=== PATIENT | female | born 2005 | race Two or more races ===

== ENCOUNTER 2025-03-06 15:56 | Outpatient (CLI) | payer OTHER, SELFPAY ==
[2025-03-06 23:21] LABS: Chlamydia DNA Amplified* NOT DETECTED (No Detected); GC DNA Amplified* NOT DETECTED (No Detected)
== END 2025-03-06 15:57 | disposition home or self-care (01) ==
LOC: NFLDUCREF 15:56
PROVIDERS: Visit Provider Nurse Practitioner Family
DX: N93.0 Postcoital and contact bleeding (principal); R82.90 Unspecified abnormal findings in urine; Z11.3 Encounter for screening for infections with a predominantly sexual mode of transmission
CPT/HCPCS: 87086; 87491; 87591